=== PATIENT | male | born 1970 | race Hispanic/Latino ===

== ENCOUNTER 2020-12-06 08:00 | Outpatient (RCR) | payer OTHER | END 2020-12-09 | LOC: PT 08:00 | PROVIDERS: ATTEND Specialist | DX: S39.012A Strain of muscle, fascia and tendon of lower back, initial encounter (principal); S29.012A Strain of muscle and tendon of back wall of thorax, initial encounter ==

== ENCOUNTER 2020-12-27 09:53 | Outpatient (RCR) | payer OTHER | END 2021-01-08 | LOC: PT 09:53 | PROVIDERS: ATTEND Specialist | DX: S39.012A Strain of muscle, fascia and tendon of lower back, initial encounter (principal); S29.012A Strain of muscle and tendon of back wall of thorax, initial encounter | CPT/HCPCS: 97139 ==